=== PATIENT | male | born 1995 | race African-American/Black ===

== ENCOUNTER → 2019-03-25 | Outpatient (CLI) | payer OTHER ==
--- NOTE | 2019-03-26 08:03 | XR ---
Left foot HISTORY: Pain 2 views of the left foot Bone mineralization, joint spaces and alignment are maintained. No fracture or dislocation. There is soft tissue swelling present. Postop changes are noted to the left ankle. No fracture or dislocation. IMPRESSION: Soft tissue swelling.
== END | disposition home or self-care (01) ==
LOC: RADXRMAIN 16:02
PROVIDERS: ATTEND Family Medicine
DX: M79.89 Other specified soft tissue disorders (principal)

== ENCOUNTER → 2019-06-11 | Outpatient (CLI) | payer OTHER ==
[2019-06-11 19:38] LABS: African American GFR (CKD) 109.1 (60.0-200.0); Anion Gap 8.5 mmol/L (4.00-12.00); BUN/Creat Ratio 13.64 Ratio (12.00-20.00); Calcium 9.9 mg/dL (8.7-10.3); Carbon Dioxide 27.5 mmol/L (21.6-31.8); Potassium 4.5 mmol/L (3.5-5.5)
== END | disposition home or self-care (01) ==
LOC: LABWHC1 13:06
PROVIDERS: ATTEND Orthopaedic Surgery Adult Reconstructive Orthopaedic Surgery
DX: Z47.89 Encounter for other orthopedic aftercare (principal); S82.62XA Displaced fracture of lateral malleolus of left fibula, initial encounter for closed fracture
CPT/HCPCS: 36415; 80048

== ENCOUNTER → 2019-07-24 | Outpatient (CLI) | payer MEDICAID, OTHER ==
--- NOTE | 2019-07-29 16:20 | NM ---
EXAMINATION TYPE: NM bone/joint limited DATE OF EXAM: 07/24/2019 COMPARISON: CT from outside institution dated 03/13/2019 HISTORY: Abnormal CT TECHNIQUE: After the intravenous administration of 24.3 mCi Tc 99m MDP. Images acquired 3.5 hours p ost injection. Multiple views of pelvis are submitted. There is mild uptake within the right ilium corresponding to the abnormality. IMPRESSION: No acute osseous abnormality. The lesion within the right ilium shows a nonaggressive jerel earance, consider enchondroma, alternate imaging could be performed for additional evaluation or shor t interval follow-up could be performed to assess for stability.
== END | disposition home or self-care (01) ==
LOC: RADNMMAIN 11:02
PROVIDERS: ATTEND Family Medicine
DX: D16.8 Benign neoplasm of pelvic bones, sacrum and coccyx (principal)
CPT/HCPCS: 78300; A9503